=== PATIENT | female | born 1990 | race Caucasian/White ===

== ENCOUNTER 2019-08-12 10:37 | Emergency (ER) | payer OTHER ==
[~2019-08-12] VITALS: Ht 182.9 cm; Wt 75.7 kg
[2019-08-12 10:44] VITALS: BP_SYST 122
--- NOTE | 2019-08-12 10:51 | NUR ---
Patient to ER bed 7 to gown for evaluation. Side rails up. Report given to Chavo HORVATH.
--- NOTE | 2019-08-12 10:58 | NUR ---
Patient presented to ER with C/O low back pain. Patient A&Ox4, afebrile, pink, ambulatory to ER . Low back Pain 02/27, denies N/V/D. Patient states back pain started Monday, No trauma or injury. Patient denies other health Hx.
[2019-08-12] MEDS ORDERED: KETOROLAC TROMETHAMINE 30 MG VIAL IM ONE (11:30)
[2019-08-12] MEDS ORDERED: DIAZEPAM 5 MG TABLET (VALIUM) PO ONE (11:30)
--- NOTE | 2019-08-12 14:06 | NUR ---
Endorsed to Nimo HORVATH
--- NOTE | 2019-08-12 14:15 | NUR ---
Pt on stable condition, no s/s of distress
[2019-08-12 14:24] VITALS: BP_SYST 121
--- NOTE | 2019-08-12 14:24 | NUR ---
Patient given written and verbal discharge instructions and verbalizes understanding. ER MD discussed with patient the results and treatment provided. Patient in stable condition. ID arm band removed. Rx of Naprosyn ,Macrobid and Valium given. Patient educated on pain management and to follow up with PMD. Pain Scale 0/10. Opportunity for questions provided and answered. Medication side effect fact sheet provided.
== END 2019-08-12 14:24 | disposition home or self-care (01) ==
LOC: SED 10:37
DX: M54.5 Low back pain (principal); N39.0 Urinary tract infection, site not specified; Z88.1 Allergy status to other antibiotic agents
CPT/HCPCS: 72100; 81002; 81025; 96372; 99283; J1885